=== PATIENT | male | born 1945 | race Caucasian/White ===

== ENCOUNTER → 2016-08-01 | Outpatient (CLI) | payer MEDICARE, MEDICAID ==
[~2016-08-01] MED LIST: /PANT40TA OR; ASPI81TA3 OR; CARV12.5 OR; LIPI80TA OR; LISI5TAB OR; PLAV75TA2 OR; SYNT75TA OR; [UNRECOGNIZED DRUG - OTHER]
[2016-08-01 11:11] LABS: BLOOD UREA NITROGEN 21 MG/DL (7-18); CREATININE FOR GFR 1.19 MG/DL (0.70-1.30); GLOMERULAR FILTRATION RATE > 60.0 (>42)
[2016-08-03 14:15] LABS: PSA TOTAL 0.9 ng/mL (0.0-4.0)
== END ==
LOC: M LAB 10:03
PROVIDERS: ATTEND Urology
DX: Z85.528 Personal history of other malignant neoplasm of kidney (principal); Z08 Encounter for follow-up examination after completed treatment for malignant neoplasm

== ENCOUNTER → 2017-02-22 | Outpatient (CLI) | payer MEDICARE, MEDICAID ==
--- NOTE | 2017-02-22 14:45 | REP ---
CHEST X-RAY, PA/LATERAL: 02/22/2017 COMPARISON: 06/08/2015, 06/19/2013. CLINICAL HISTORY: Cough. FINDINGS: The two-views show the lung grover well inflated. There is no pleural effusion, lateral pleural thickening, apical scarring, or pneumothorax. No visible mass. Heart is not enlarged. There is no vascular redistribution. The aorta is calcified, mildly tortuous but without aneurysm and normal for age. No vascular redistribution. Mediastinal and hilar contours normal and unchanged. Bony thorax shows marginal osteophytes without acute compression deformity. No free air. IMPRESSION: No acute cardiopulmonary change. There is less peribronchial thickening as seen on the previous study. No dense consolidation, effusion, cardiomegaly, or edema. Signed by John Boo MD 02/22/2017 07:41 P
== END ==
LOC: M LRY 13:41
PROVIDERS: ATTEND Nurse Practitioner Family
DX: R05 Cough (principal)
CPT/HCPCS: 71020; 87880; 94640; G0463

== ENCOUNTER → 2017-08-18 | Outpatient (CLI) | payer MEDICARE, MEDICAID ==
[2017-08-18 11:31] LABS: BLOOD UREA NITROGEN 26 MG/DL (7-18)
[2017-08-18 11:31] LABS: CREATININE FOR GFR 1.03 MG/DL (0.70-1.30); GLOMERULAR FILTRATION RATE > 60.0 (>42)
[2017-08-19 14:10] LABS: PSA TOTAL 0.9 ng/mL (0.0-4.0)
== END ==
LOC: M LAB 10:19
DX: C64.2 Malignant neoplasm of left kidney, except renal pelvis (principal); N40.1 Benign prostatic hyperplasia with lower urinary tract symptoms
CPT/HCPCS: 82565

== ENCOUNTER 2018-01-05 10:59 | Emergency (ER) | payer MEDICARE, MEDICAID ==
[2018-01-05 12:02] LABS: BASO # 0.1 10^3/uL (0.0-0.2); EOS # 0.3 10^3/uL (0.0-0.50); EOS % 5.3 % (0.0-3.0); HEMATOCRIT 43.8 % (42.0-52.0); HEMOGLOBIN 14.8 g/dl (13.5-17.5); IMMATURE GRANULOCYTE % 0.2 % (0-3.0); LYMPH # 1.4 10^3/uL (1.5-4.5); LYMPH % 28.1 % (24.0-44.0); MEAN CORPUSCULAR HEMOGLOBIN 29.9 pg (27.0-33.0); MEAN CORPUSCULAR HGB CONC 33.8 g/dl (32.0-36.5); MEAN CORPUSCULAR VOLUME 88.5 fl (80.0-96.0); MONO # 0.7 10^3/uL (0.0-0.8); MONO % 13.9 % (0.0-5.0); NEUTROPHILS # 2.6 10^3/uL (1.8-7.7); NEUTROPHILS % 51.5 % (36.0-66.0); PLATELET COUNT, AUTOMATED 156 10^3/uL (150-450); RED BLOOD COUNT 4.95 10^6/uL (4.30-6.10); WHITE BLOOD COUNT 5.1 10^3/uL (4.0-10.0)
[2018-01-05 12:29] LABS: ANION GAP 5 MEQ/L (8-16); BLOOD UREA NITROGEN 22 MG/DL (7-18); CARBON DIOXIDE LEVEL 28 MEQ/L (21-32); CHLORIDE LEVEL 109 MEQ/L (98-107); CPK CREATINE PHOSPHOKINASE 389 U/L (39-308); CREATININE FOR GFR 0.99 MG/DL (0.70-1.30); GLOMERULAR FILTRATION RATE > 60.0 (>42); GLUCOSE, FASTING 96 MG/DL (70-100); MB/CK RELATIVE INDEX 3.19 (< OR =4); POTASSIUM SERUM 4.4 MEQ/L (3.5-5.1); SODIUM LEVEL 142 MEQ/L (136-145); TROPONIN I < 0.02 NG/ML (< 0.10)
[2018-01-05] MEDS: GI COCKTAIL 50ML BTL(HYOSCYAMINE/MAALOX/LIDOCAINE VISCOUS)(1:3:1) PO (12:38)
[2018-01-05 12:50] LABS: ALBUMIN 3.6 GM/DL (3.2-5.2); ALBUMIN/GLOBULIN RATIO 1.29 (1.00-1.93); ALKALINE PHOSPHATASE 73 U/L (45-117); ALT/SGPT 52 U/L (12-78); AST/SGOT 43 U/L (7-37); BILIRUBIN,DIRECT 0.2 MG/DL (0.0-0.2); BILIRUBIN,TOTAL 0.8 MG/DL (0.2-1.0); FREE T4 0.93 NG/DL (0.76-1.46); THYROID STIMULATING HORMONE 0.741 uIU/ML (0.358-3.740); TOTAL PROTEIN 6.4 GM/DL (6.4-8.2)
[2018-01-05] MEDS: ISOSORBIDE MON. (IMDUR) 30 MG XR TAB PO (14:30)
[2018-01-05 15:06] LABS: CPK CREATINE PHOSPHOKINASE 341 U/L (39-308); MB/CK RELATIVE INDEX 3.08 (< OR =4); TROPONIN I < 0.02 NG/ML (< 0.10)
== END 2018-01-05 15:42 | disposition home or self-care (01) ==
LOC: M ED 10:59
DX: I25.118 Atherosclerotic heart disease of native coronary artery with other forms of angina pectoris (principal); K21.9 Gastro-esophageal reflux disease without esophagitis; I45.10 Unspecified right bundle-branch block; I49.3 Ventricular premature depolarization; I25.2 Old myocardial infarction; I11.9 Hypertensive heart disease without heart failure; E03.9 Hypothyroidism, unspecified; Z95.5 Presence of coronary angioplasty implant and graft; Z79.899 Other long term (current) drug therapy; Z79.82 Long term (current) use of aspirin
CPT/HCPCS: 71046

== ENCOUNTER 2018-04-24 11:23 | Emergency (ER) | payer MEDICARE, MEDICAID ==
[~2018-04-24] VITALS: Ht 182.9 cm; Wt 106.8 kg
[~2018-04-24 11:23] MED LIST changes: +ASPI1TAB PO; +BACL10TA2; +FOLI1TAB11; +ISOS30TA4 PO; +LEVO50TA5; +OMEP10CASR PO
[2018-04-24] MEDS ORDERED: ASPIRIN 81 MG CHEW TABLET PO ONE (12:00)
[2018-04-24 12:10] LABS: BASO # 0.1 10^3/uL (0.0-0.2); BASO % 1.4 % (0.0-1.0); EOS # 0.3 10^3/uL (0.0-0.50); EOS % 6.5 % (0.0-3.0); HEMATOCRIT 44.8 % (42.0-52.0); HEMOGLOBIN 15.4 g/dl (13.5-17.5); LYMPH # 1.5 10^3/uL (1.5-4.5); LYMPH % 30.2 % (24.0-44.0); MEAN CORPUSCULAR HEMOGLOBIN 29.8 pg (27.0-33.0); MEAN CORPUSCULAR HGB CONC 34.4 g/dl (32.0-36.5); MEAN CORPUSCULAR VOLUME 86.7 fl (80.0-96.0); MONO # 0.8 10^3/uL (0.0-0.8); MONO % 15.1 % (0.0-5.0); NEUTROPHILS # 2.3 10^3/uL (1.8-7.7); NEUTROPHILS % 46.4 % (36.0-66.0); PLATELET COUNT, AUTOMATED 162 10^3/uL (150-450); RED BLOOD COUNT 5.17 10^6/uL (4.30-6.10)
[2018-04-24 12:36] LABS: BLOOD UREA NITROGEN 21 MG/DL (7-18); CALCIUM LEVEL 9.1 MG/DL (8.8-10.2); CARBON DIOXIDE LEVEL 24 MEQ/L (21-32); CHLORIDE LEVEL 108 MEQ/L (98-107); CPK CREATINE PHOSPHOKINASE 321 U/L (39-308); CREATININE FOR GFR 0.97 MG/DL (0.70-1.30); GLOMERULAR FILTRATION RATE > 60.0 (>42); GLUCOSE, FASTING 126 MG/DL (70-100); MB/CK RELATIVE INDEX 2.55 (< OR =4); POTASSIUM SERUM 4.2 MEQ/L (3.5-5.1); SODIUM LEVEL 140 MEQ/L (136-145); TROPONIN I 0.02 NG/ML (< 0.10)
--- NOTE | 2018-04-24 12:39 | REP ---
Chest one-view HISTORY: Chest pain Comparison: 01/05/2018 The lungs are clear. The heart is normal in size. The pulmonary vasculature is normal in appearance. Impression: No acute disease. Electronically Signed by Elio Loomis MD 04/24/2018 12:29 P
[2018-04-24 14:38] LABS: CPK CREATINE PHOSPHOKINASE 336 U/L (39-308); MB/CK RELATIVE INDEX 1.99 (< OR =4); TROPONIN I < 0.02 NG/ML (< 0.10)
[2018-04-24 15:12] VITALS: BP 120/76
--- NOTE | 2018-04-25 08:50 | ECGEPIP ---
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
--- NOTE | 2018-04-25 08:56 | ECGEPIP ---
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
== END 2018-04-24 15:13 | disposition home or self-care (01) ==
LOC: M ED 11:23
DX: R07.89 Other chest pain (principal); I25.10 Atherosclerotic heart disease of native coronary artery without angina pectoris; I25.2 Old myocardial infarction; I10 Essential (primary) hypertension; E78.5 Hyperlipidemia, unspecified

== ENCOUNTER → 2019-08-27 | Outpatient (CLI) | payer MEDICARE, MEDICAID ==
[~2019-08-27] MED LIST changes: -/PANT40TA OR; -ASPI1TAB PO; +ASPI81TA26 PO; +PROT1TAB2 OR
[2019-08-27 12:19] LABS: BLOOD UREA NITROGEN 15 MG/DL (7-18); CALCIUM LEVEL 9.2 MG/DL (8.8-10.2); CARBON DIOXIDE LEVEL 27 MEQ/L (21-32); CHLORIDE LEVEL 105 MEQ/L (98-107); CREATININE FOR GFR 1.15 MG/DL (0.70-1.30); GLOMERULAR FILTRATION RATE > 60.0 (>42); GLUCOSE, FASTING 107 MG/DL (70-100); POTASSIUM SERUM 4.7 MEQ/L (3.5-5.1); PROSTATIC SPECIFIC AG MONITOR 0.91 NG/ML (< 4.00); SODIUM LEVEL 137 MEQ/L (136-145)
== END ==
LOC: M LAB 10:33
PROVIDERS: ATTEND Nurse Practitioner
DX: C64.2 Malignant neoplasm of left kidney, except renal pelvis (principal)

== ENCOUNTER → 2019-11-06 | Outpatient (REF) | payer MEDICARE, MEDICAID | LOC: M LAB REF 16:23 | PROVIDERS: ATTEND Dermatology | DX: L57.0 Actinic keratosis (principal); D04.4 Carcinoma in situ of skin of scalp and neck | CPT/HCPCS: 11102; 11103; 17000; 17003; 88305; G0463 ==

== ENCOUNTER → 2020-06-15 | Outpatient (REF) | payer MEDICARE, MEDICAID ==
[~2020-06-15] MED LIST changes: +ISOS1TAB35 PO; -ISOS30TA4 PO
== END ==
LOC: M LAB REF 17:27
PROVIDERS: ATTEND Dermatology
DX: L57.0 Actinic keratosis (principal); L81.4 Other melanin hyperpigmentation; L57.8 Other skin changes due to chronic exposure to nonionizing radiation

== ENCOUNTER → 2021-06-15 | Outpatient (CLI) | payer MEDICARE, MEDICAID ==
[~2021-06-15] MED LIST changes: +ATOR80TA59 PO; +CARV6.25 PO; +ERGO500029 PO; +EZET10TA21 PO; +FURO20TA2 PO; +LISI10TA22 PO
== END ==
LOC: M WUC 10:24
PROVIDERS: ATTEND Nurse Practitioner
DX: N40.1 Benign prostatic hyperplasia with lower urinary tract symptoms (principal)

== ENCOUNTER → 2021-06-15 | Outpatient (CLI) | payer MEDICARE, MEDICAID ==
[2021-06-15 12:57] LABS: APPEARANCE, URINE CLEAR (CLEAR); BACTERIA, URINE AUTO NEGATIVE (NEGATIVE); BILIRUBIN, URINE AUTO NEGATIVE (NEGATIVE); BLOOD, URINE BLOOD NEGATIVE (NEGATIVE); COLOR, URINE YELLOW (YELLOW); GLUCOSE, URINE (UA) AUTO NEGATIVE (NEGATIVE); KETONE, URINE AUTO NEGATIVE (NEGATIVE); LEUKOCYTE ESTERASE, URINE AUTO TRACE (NEGATIVE); MUCUS, URINE SMALL (NEGATIVE); NITRITE, URINE AUTO NEGATIVE (NEGATIVE); PROTEIN, URINE AUTO NEGATIVE (NEGATIVE); RBC, URINE AUTO 0 /HPF (0-3); SPECIFIC GRAVITY URINE AUTO 1.012 (1.002-1.035); SQUAMOUS EPITHELIAL CELL UR AU 0 /HPF (0-6); UROBILINOGEN, URINE AUTO 0.2 mg/dL (0.0-2.0); WBC, URINE AUTO 2 /HPF (0-3)
[2021-06-15 13:02] LABS: BASO # 0.1 10^3/uL (0.0-0.2); BASO % 1.3 % (0.0-1.0); EOS # 0.4 10^3/uL (0.0-0.5); HEMOGLOBIN 16.8 g/dl (13.5-17.5); LYMPH # 1.9 10^3/uL (1.5-5.0); LYMPH % 31.8 % (24.0-44.0); MEAN CORPUSCULAR HEMOGLOBIN 29.3 pg (27.0-33.0); MEAN CORPUSCULAR HGB CONC 33.6 g/dl (32.0-36.5); MEAN CORPUSCULAR VOLUME 87.1 fl (80.0-96.0); MONO # 0.7 10^3/uL (0.0-0.8); MONO % 11.5 % (2.0-8.0); NEUTROPHILS # 2.9 10^3/uL (1.5-8.5); NEUTROPHILS % 49.1 % (36.0-66.0); PLATELET COUNT, AUTOMATED 186 10^3/uL (150-450); RED BLOOD COUNT 5.74 10^6/uL (4.30-6.10)
[2021-06-15 13:28] LABS: BILIRUBIN,TOTAL 0.9 MG/DL (0.2-1.0); CALCIUM LEVEL 9.6 MG/DL (8.8-10.2); CHOLESTEROL RISK RATIO 4.205 (<5); CREATININE FOR GFR 1.3 MG/DL (0.70-1.30); FREE T4 0.8 NG/DL (0.76-1.46); POTASSIUM SERUM 4.7 MEQ/L (3.5-5.1); THYROID STIMULATING HORMONE 1.21 uIU/ML (0.358-3.740); TOTAL PROTEIN 7.5 GM/DL (6.4-8.2)
[2021-06-15 13:31] LABS: FOLATE 21.2 NG/ML; TOTAL 25(OH) VITAMIN D 57.7 NG/ML (30.0-100.0)
[2021-06-15 14:07] LABS: HEMOGLOBIN A1c 6.8 %
== END ==
LOC: M WUC 10:21
PROVIDERS: ATTEND Family Medicine
DX: E78.5 Hyperlipidemia, unspecified (principal); E03.9 Hypothyroidism, unspecified; K21.9 Gastro-esophageal reflux disease without esophagitis; E55.9 Vitamin D deficiency, unspecified; I10 Essential (primary) hypertension

== ENCOUNTER → 2022-02-02 | Outpatient (REF) | payer MEDICARE, MEDICAID | LOC: M SFHCDERM 09:29 | PROVIDERS: ATTEND Physician Assistant | DX: C44.629 Squamous cell carcinoma of skin of left upper limb, including shoulder (principal) ==

== ENCOUNTER 2022-05-03 11:28 | Emergency (ER) | payer MEDICARE, MEDICAID ==
[~2022-05-03] VITALS: Ht 182.9 cm; Wt 116.8 kg
[2022-05-03 16:24] VITALS: BP 178/95
[2022-05-03 18:04] LABS: BASO # 0.1 10^3/uL (0.0-0.2); EOS # 0.6 10^3/uL (0.0-0.5); EOS % 6.5 % (0.0-3.0); HEMOGLOBIN 16.9 g/dl (13.5-17.5); LYMPH # 2.8 10^3/uL (1.5-5.0); LYMPH % 30.7 % (24.0-44.0); MEAN CORPUSCULAR HEMOGLOBIN 29.2 pg (27.0-33.0); MEAN CORPUSCULAR HGB CONC 33.1 g/dl (32.0-36.5); MEAN CORPUSCULAR VOLUME 88.2 fl (80.0-96.0); MONO # 0.8 10^3/uL (0.0-0.8); MONO % 9.3 % (2.0-8.0); NEUTROPHILS # 4.7 10^3/uL (1.5-8.5); NEUTROPHILS % 52.2 % (36.0-66.0); PLATELET COUNT, AUTOMATED 222 10^3/uL (150-450); RED BLOOD COUNT 5.78 10^6/uL (4.30-6.10)
[2022-05-03 18:37] LABS: ALBUMIN 3.6 G/DL (3.2-5.2); BILIRUBIN,DIRECT 0.3 MG/DL (<0.4); BILIRUBIN,TOTAL 0.9 MG/DL (0.3-1.2); CK-MB VALUE MASS 3.2 NG/ML (<3.6); TOTAL PROTEIN 6.9 G/DL (5.7-8.2)
[2022-05-03 18:39] LABS: MB/CK RELATIVE INDEX 1.1 (< OR =4)
[2022-05-03] MEDS ORDERED: ISOVUE-370 76% 100ML VIAL As Ordered ONE (19:45)
[2022-05-03] MEDS ORDERED: ALBUTEROL 90 MCG/ACT 8GM HFA INHALER INH ONE (21:05)
[2022-05-03] MEDS ORDERED: DOXYCYCLINE HYCLATE 100MG TABLET PO ONE (21:05)
[2022-05-03] MEDS ORDERED: DOXY-443 PO (21:08)
[2022-05-03] MEDS ORDERED: BENZ200C70 PO (21:08)
[2022-05-03] MEDS ORDERED: VENTAER INH (21:08)
== END 2022-05-03 21:40 | disposition home or self-care (01) ==
LOC: M ED 11:28
DX: J20.9 Acute bronchitis, unspecified (principal); I51.7 Cardiomegaly; I25.2 Old myocardial infarction; I10 Essential (primary) hypertension; E78.5 Hyperlipidemia, unspecified; E03.9 Hypothyroidism, unspecified; M54.9 Dorsalgia, unspecified; Z95.5 Presence of coronary angioplasty implant and graft; Z79.82 Long term (current) use of aspirin; Z79.890 Hormone replacement therapy; Z79.899 Other long term (current) drug therapy; Z88.8 Allergy status to other drugs, medicaments and biological substances
CPT/HCPCS: 71045; 71275; 80047; 80076; 82550; 82553; 83605; 83880; 84484; 85025; 87040; 87076; 87486; 87581; 87633; 87798; 93005; 94640; 99284; Q9967

== ENCOUNTER → 2023-03-09 | Outpatient (CLI) | payer MEDICARE, MEDICAID ==
[~2023-03-09] MED LIST changes: +BENZ200C70 PO; +DOXY-443 PO; +VENTAER INH
== END ==
LOC: M RAD 09:41
PROVIDERS: ATTEND Physician Assistant
DX: I65.23 Occlusion and stenosis of bilateral carotid arteries (principal)